=== PATIENT | male | born 1995 | race Caucasian/White ===

== ENCOUNTER 2017-06-18 17:39 | Emergency (ER) | payer OTHER ==
[~2017-06-18] VITALS: Ht 172.7 cm; Wt 68.2 kg
[2017-06-18] MEDS ORDERED: ONDANSETRON 4MG/2ML VIAL (J2405) IV ONE (19:15)
[2017-06-18] MEDS ORDERED: NS 1,000 ML IV ONE (19:15)
[2017-06-18] MEDS ORDERED: ACETAMINOPHEN 325 MG TAB PO ONE (19:15)
--- NOTE | 2017-06-18 19:40 | REPUSA ---
Clinical history: Right upper quadrant pain. Findings: The pancreas is limited in visualization secondary to overlying bowel gas, but appears shane sly unremarkable. The liver demonstrates uniform echotexture and echogenicity, with no mass lesions. The gallbladder is unremarkable. The common bile duct measures 5 mm and is within normal limits. The right kidney measures 11 cm in length and is unremarkable. There is no ascites. Impression: Unremarkable ultrasound examination of the right upper quadrant.
[2017-06-18 19:44] LABS: BASO % 0.4 % (0.0-1.0); EOS % 0.4 % (0.0-3.0); IMMATURE GRANULOCYTE % 0.4 % (0-0); LYMPH # 0.7 10^3/uL (1.5-6.5); LYMPH % 14.7 % (24.0-44.0); MEAN CORPUSCULAR HEMOGLOBIN 29.7 pg (27.0-33.0); MEAN CORPUSCULAR HGB CONC 33.5 g/dl (32.0-36.5); MEAN CORPUSCULAR VOLUME 88.8 fl (80.0-96.0); MONO # 0.5 10^3/uL (0.0-0.8); MONO % 9.7 % (0.0-5.0); NEUTROPHILS # 3.7 10^3/uL (1.8-7.7); NEUTROPHILS % 74.4 % (36.0-66.0); PLATELET COUNT, AUTOMATED 149 10^3/uL (150-450); RED CELL DISTRIBUTION WIDTH 11.9 % (11.5-14.5)
[2017-06-18 20:19] LABS: ALBUMIN 3.7 GM/DL (3.2-5.2); ALBUMIN/GLOBULIN RATIO 1.12 (1.00-1.93); ALKALINE PHOSPHATASE 75 U/L (45-117); ALT/SGPT 30 U/L (12-78); AMYLASE 41 U/L (25-115); ANION GAP 8 MEQ/L (8-16); AST/SGOT 22 U/L (15-37); BILIRUBIN,DIRECT 0.3 MG/DL (0.0-0.2); BILIRUBIN,TOTAL 0.9 MG/DL (0.2-1.0); BLOOD UREA NITROGEN 9 MG/DL (7-18); CALCIUM LEVEL 8.3 MG/DL (8.5-10.1); CARBON DIOXIDE LEVEL 29 MEQ/L (21-32); CHLORIDE LEVEL 99 MEQ/L (98-107); CREATININE FOR GFR 1.21 MG/DL (0.70-1.30); GLUCOSE, FASTING 102 MG/DL (70-105); POTASSIUM SERUM 4.1 MEQ/L (3.5-5.1); SODIUM LEVEL 136 MEQ/L (136-145)
[2017-06-18] MEDS ORDERED: guaiFENesin/CODEINE SYRUP 5 ML UDC PO ONE (20:30)
[2017-06-18] MEDS ORDERED: AZITHROMYCIN 250 MG TAB PO ONE (20:30)
[2017-06-18 20:38] VITALS: BP 111/57
[2017-06-18] MEDS ORDERED: CHERSYP3 PO (20:38)
[2017-06-18] MEDS ORDERED: REGL10TA6 PO (20:38)
[2017-06-18] MEDS ORDERED: AZIT-12 PO (20:38)
--- NOTE | 2017-06-19 11:39 | REP ---
REASON: Cough and fever. PRIORS: None. There is a patchy opacity in the right lower lobe. The lung armas are otherwise clear and the heart is not enlarged. The right pleural angle is minimally blunted. The left pleural angle is sharp. The osseous structures are within normal limits. IMPRESSION: Right lower lobe pneumonia with a tiny reactive right pleural effusion. Signed by John Ibarra DO 06/19/2017 09:49 A
== END 2017-06-18 20:56 | disposition home or self-care (01) ==
LOC: M ED 17:39
DX: J18.1 Lobar pneumonia, unspecified organism (principal); R11.2 Nausea with vomiting, unspecified; R19.7 Diarrhea, unspecified; R05 Cough; R50.9 Fever, unspecified; Z79.899 Other long term (current) drug therapy
CPT/HCPCS: 71020; 76705; 80048; 80076; 82150; 83690; 85025; 86140; 96361; 96374; 99283; J2405